=== PATIENT | male | born 1950 | race Caucasian/White ===

== ENCOUNTER 2018-12-24 20:23 | Observation (INO) | payer OTHER ==
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
[2018-12-24] MEDS ORDERED: ONDANSETRON 4 MG/2 ML VIAL IVP PRN ×2 (22:14→22:28)
[2018-12-24] MEDS ORDERED: ACETAMINOPHEN 325 MG TAB PO PRN ×2 (22:14→22:28)
[2018-12-24] MEDS ORDERED: ONDANSETRON DISINTEGRATING 4 MG TAB PO PRN ×2 (22:14→22:28)
--- NOTE | 2018-12-24 22:27 | CPEKG ---
Test Reason : OPEN Blood Pressure : / mmHG Vent. Rate : 061 BPM Atrial Rate : 062 BPM P-R Int : 293 ms QRS Dur : 100 ms QT Int : 443 ms P-R-T Axes : 039 -54 004 degrees QTc Int : 447 ms Sinus rhythm Prolonged CT interval Left anterior fascicular block Confirmed by Olegario Estrella ([id number]) on 12/24/2018 10:27:27 PM Referred By: Olegario Estrella Confirmed By:Olegario Estrella
[2018-12-24 22:35] VITALS: BP 115/73
--- NOTE | 2018-12-25 00:07 | PDGENHP ---
History and Physical - Chief Complaint Syncope - History of Present Illness 68 yo M w/ hx of hypothyroid presents after syncopal event. The patient is an avid runner and runs 10-15 miles weekly. Today he ran several miles without issue. After this he was sitting on his porch with his when he began to feel faint and noted visual blurring. He then lost consciousness. His reported this lasted about 2 minutes. He regained consciousness as his was on the phone with 911. They performed a stroke screen and that was normal. He quickly returned to baseline mental status. He denies chest pain, palpitations, or SOB. He thinks he drank plenty of water after his run. In the ED his evaluation is mostly unremarkable. 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 He is being admitted for observation. Case discussed with Dr. De; records reviewed and summarized above. History Information - Allergies/Home Medication List Allergies/Adverse Reactions: No Known Allergies Allergy (Unverified 12/24/18 20:28) Home Medications: Levothyroxine [Synthroid 112 mcg (*)] 112 mcg PO DAILY06 12/24/18 [Last Taken ] I have personally reviewed and updated: family history, medical history - Past Medical History Additional medical history: Hypothyroid - Surgical History Reports: no pertinent surgical hx - Family History Positive for: stroke - Social History Smoking Status: Never smoked Review of Systems Review of Systems: ROS: 10pt was reviewed & negative except for what was stated in HPI & below Physical Exam Physical Exam: Temp Pulse Resp BP Pulse Ox 36.8 C 62 12 115/73 98 12/24/18 22:20 12/24/18 22:20 12/24/18 22:20 12/24/18 22:20 12/24/18 22:20 Constitutional: no apparent distress, not in pain Eyes: PERRL, EOMI Ears, Nose, Mouth, Throat: moist mucous membranes, no oral mucosal ulcers Cardiovascular: regular rate and rhythym, no murmur, rub, or gallop Respiratory: no respiratory distress, clear to auscultation Gastrointestinal: normoactive bowel sounds, soft, non-tender abdomen Skin: warm, normal color Musculoskeletal: full muscle strength, no muscle tenderness Neurologic: AAOx3, CN II-XII Intact Psychiatric: interacting appropriately, not anxious Lab Data & Imaging Review POC Hgb 14.6 gm/dL (13.7-17.5) 12/24/18 20:38 POC Hct 43 % (40-51) 12/24/18 20:38 POC Sodium 138 mEq/L (135-145) 12/24/18 20:38 POC Potassium 4.1 mEq/L (3.3-5.0) 12/24/18 20:38 POC Chloride 101 mEq/L (97-110) 12/24/18 20:38 POC Total CO2 26 mEq/L (22-31) 12/24/18 20:38 POC BUN 20 mg/dL (7-23) 12/24/18 20:38 POC Creatinine 1.0 mg/dL (0.7-1.3) 12/24/18 20:38 POC Glucose 111 mg/dL (70-100) H 12/24/18 20:38 POC Troponin I 0.01 ng/mL (0.00-0.08) 12/24/18 20:36 Visualized and Interpreted EKG results: Yes EKG Interpretation: Positive for: normal sinsus rhythm, other (LAFB) Assessment & Plan Assessment: 68 yo M w/ hx of hypothyroid presents after syncopal event. Plan: 1. Syncope - Some concerning features in that the patient was sitting during the event with minimal prodrome. He did have a sense of visual blurring just prior to the event. He denies chest pain or palpitations. His ECG (personally reviewed/interpreted) notable only for LAFB. - Observe in PCU - Monitor on temetry - Check orthostatic VS x1 - Noting atypical features and mildly abnormal ECG will order TTE 2. Hypothyroid - Will check TSH noting above Diet - Regular Code - Full Ppx - LMWH Dispo - Admit under observation status
[2018-12-25] MEDS ORDERED: ENOXAPARIN 40 MG/0.4 ML SYR SC SCH ×2 (09:00)
--- NOTE | 2018-12-28 03:23 | PDDCSUM ---
Discharge Summary Discharge Summary: Hospital course: Date of admission: 12/25 Reason for admission: Syncope Of note, the patient left AMA shortly after admission. Please see admission H&P for further details. Hospital course/Summary: 68 yo M w/ hx of hypothyroid presents after syncopal event. The patient is an avid runner and runs 10-15 miles weekly. Today he ran several miles without issue. After this he was sitting on his porch with his when he began to feel faint and noted visual blurring. He then lost consciousness. His reported this lasted about 2 minutes. He regained consciousness as his was on the phone with 911. They performed a stroke screen and that was normal. He quickly returned to baseline mental status. He denies chest pain, palpitations, or SOB. He thinks he drank plenty of water after his run. In the ED his evaluation is mostly unremarkable. 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 The patient was admitted for observation but left shortly after AMA. Please see admission H&P for further details. Diagnosis: Syncope (Acute) Condition: Fair Procedures performed: None Follow-up: Patient left AMA, advised to follow up with PCP
== END 2018-12-25 03:03 | disposition left against medical advice (07) ==
LOC: EDBD → EDUNIT# → F2W 21:10
PROVIDERS: ADMIT Internal Medicine; ATTEND Internal Medicine
DX: R55 Syncope and collapse (principal)
CPT/HCPCS: 93005; 99285; G0378; 82435-PO; 82565-PO; 82947-PO; 84132-PO; 84295-PO; 84484-ER; 84520-PO; 85014-ER